=== PATIENT | female | born 1955 | race Caucasian/White ===

== ENCOUNTER 2019-08-24 17:05 | Inpatient (IN) | payer MEDICARE, BC ==
[~2019-08-24] VITALS: Ht 165.1 cm; Wt 65.8 kg
--- NOTE | 2019-08-24 17:45 | NUR ---
GPS/RN RECEIVED PT FROM [facility] DIRECT ADMIT ON 5150 FOR DTS, OVERDOSED AT HOME. WANTED TO . AMBULATORY, SELFCARE NO ACUTE DISTRESS ON FACE TO FACE ASSESSMENT PT DENIED SI, HI A/V H. NEGATIVE FOR COVID. DR MORGAN CALLED FOR THE ORDERS , ORDERS RECEIVED AND CARRIED OUT. WILL ENDORSE TO RAPHAEL BAIRD TO CONTINUE WITH ADMISSISON.
[2019-08-24] MEDS ORDERED: TOPI50TA24 MT (18:13)
[2019-08-24] MEDS ORDERED: LEVO75TA7 MT (18:13)
[2019-08-24] MEDS ORDERED: ALPR1TAB7 MT (18:13)
[2019-08-24] MEDS ORDERED: ASPI-605 PO (18:13)
[2019-08-24] MEDS ORDERED: CHOL10002 PO (18:13)
[2019-08-24] MEDS ORDERED: HYDR-3980 MT (18:13)
[2019-08-24] MEDS ORDERED: PARO20TA7 MT (18:13)
[2019-08-24] MEDS ORDERED: ESTR0.5T MT (18:13)
[2019-08-24] MEDS ORDERED: ACETAMINOPHEN 325 MG TABLET PO PRN (18:30)
[2019-08-24] MEDS ORDERED: MAG HYDROX/AL HYDROX/SIMETH 30 ML UDC PO PRN (18:30)
[2019-08-24] MEDS ORDERED: BLOOD SUGAR DIAGNOSTIC 1 EACH STRIP IN ONE (18:30)
[2019-08-24] MEDS ORDERED: MAGNESIUM HYDROXIDE 30 ML UDC PO PRN (18:30)
[2019-08-24 18:31] VITALS: BP 150/80
[2019-08-24 18:55] VITALS: BP 139/77
[2019-08-24 20:00] VITALS: BP 139/77
[2019-08-24] MEDS ORDERED: HYDROCODONE/APAP 10/325MG 1 EA TABLET PO PRN (20:00)
--- NOTE | 2019-08-24 20:16 | NUR ---
ADMISSION NOTES: ADMITTED THIS 64Y/O FEMALE PATIENT ADMIT FROM [facility], ADMITTED TO GPS ON 5150 HOLD, PER HOLD DANGER TO SELF , PER HOLD SUICIDAL IDEATION AND OVERDOSE ,UPON FACE TO FACE ASSESSMENT PATIENT IS A&O X ,3 DEPRESSED, APPROACHABLE, CALM COOPERTIVE, DENIES SI /HI AT THIS TIME, PT. IS POOR HISTORIAN, POOR INSIGHT ,POOR JUDGEMENT , PT. REFUSED TO SIGNS ADMISSION CONSENT PAPERS , BOTH MD AWARE AND NOTIFIED OF THE ADMISSION, BELONGINGS CONTRABAND WERE DONE , NURSING ASSESSMENT DONE ,PT. RIGHTS DISCUSS BY ROLLER PRESSER OPERATOR , PROVIDE THE PT. WITH HANDBOOK, AND MEDICATIONS GUIDE, ENVIRONMENTAL SAFETY CHECK DONE, ENCOURAGED PT. VERBALIZED ANY FEELING CONCERN TO STAFF, ORIENT TO UNIT POLICY, NO ACUTE DISTRESS NOTED,VITAL SIGNS WNL ,DENIES ANY PAIN AT THIS TIME,WILL CONTINUE TO MONITOR FOR Q15 SAFETY AND BEHAVIOR.
[2019-08-25 07:27] LABS: CHOLESTEROL 281 mg/dL (<200); HDL CHOLESTEROL 57 mg/dL (40-60); LDL 195 mg/dL (0-99); TRIGLYCERIDES 118 mg/dL (30-150)
[2019-08-25 07:33] LABS: BILIRUBIN,TOTAL 0.5 mg/dL (0.2-1.0); CALCIUM, SERUM 9.4 mg/dL (8.5-10.1); CREATININE 0.6 mg/dL (0.6-1.3); POTASSIUM 3.2 mmol/L (3.5-5.1); TOTAL PROTEIN, SERUM 7.6 g/dL (6.4-8.2)
[2019-08-25 08:00] VITALS: BP 144/89
[2019-08-25] MEDS: LEVOTHYROXINE SODIUM 75 MCG TABLET PO SCH (08:21)
[2019-08-25] MEDS: ASPIRIN EC 81 MG TABLET.DR PO SCH (08:40)
[2019-08-25] MEDS: CHOLECALCIFEROL 1,000 UNIT TABLET (VIT D3) PO SCH (08:40)
[2019-08-25] MEDS: ESTRADIOL 1 MG TABLET PO SCH (08:40)
[2019-08-25] MEDS ORDERED: ONDANSETRON 4 MG TAB.RAPDIS PO PRN (10:30)
[2019-08-25] MEDS: POTASSIUM CHLORIDE 20 MEQ TAB.PRT.SR PO SCH ×2 (11:33→12:51)
[2019-08-25] MEDS: FEXOFENADINE HCL (60 MG) 60 MG TABLET PO SCH (11:33)
[2019-08-25] MEDS: TOPIRAMATE 100 MG TABLET PO SCH (15:15)
[2019-08-25 16:00] VITALS: BP 137/79
--- NOTE | 2019-08-25 16:17 | NUR ---
Individual Counseling: This SW met with the patient at bedside to provide counseling regarding support systems. The patient cooperative throughout discussion. Patient is tangential and hyperverbal. Patient discussed relationship with her parents who years ago and bereavement. Pt. discussed relationship with her and son. Patient will be invited to participate in the next therapeutic milieu.
[2019-08-25 20:04] VITALS: BP 122/74
[2019-08-25] MEDS: PAROXETINE HCL 20 MG TABLET PO SCH (21:27)
[2019-08-25] MEDS ORDERED: diphenhydrAMINE HCL 25 MG CAPSULE PO PRN (22:00)
--- NOTE | 2019-08-26 00:14 | NUR ---
GPS RN NOTES: UPON DOING ROUNDS, PT AWAKE. ENCOURAGE PT TO EXPRESS THOUGHTS AND FEELINGS TO STAFF. PT STATED, "IM TRYING TO SLEEP ON MY OWN. " OFFERED RESTORIL PRN ORDERED. PT REFUSED. EXPLAIN RISKS AND BENEFITS. PT STILL REFUSED X3. CONTINUE TO MONITOR.
[2019-08-26 07:45] LABS: CALCIUM, SERUM 9.8 mg/dL (8.5-10.1); CREATININE 0.8 mg/dL (0.6-1.3); POTASSIUM 3.6 mmol/L (3.5-5.1)
[2019-08-26 08:00] VITALS: BP 132/83
[2019-08-26] MEDS: LEVOTHYROXINE SODIUM 75 MCG TABLET PO SCH (08:08)
[2019-08-26] MEDS: ESTRADIOL 1 MG TABLET PO SCH (08:22)
[2019-08-26] MEDS: CHOLECALCIFEROL 1,000 UNIT TABLET (VIT D3) PO SCH (08:22)
[2019-08-26] MEDS: TOPIRAMATE 100 MG TABLET PO SCH (08:22)
[2019-08-26] MEDS: FEXOFENADINE HCL (60 MG) 60 MG TABLET PO SCH (08:22)
[2019-08-26] MEDS: ASPIRIN EC 81 MG TABLET.DR PO SCH (08:22)
--- NOTE | 2019-08-26 12:10 | NUR ---
SUBSTANCE ABUSE INTERVENTION: SW provided substance abuse intervention to pt and discussed alternative ways of coping and dealing with stress.
--- NOTE | 2019-08-26 13:05 | NUR ---
INITIAL DISCHARGE PLAN: Pt wishes to return home [address] [place] [address]. Pts Naren [phone] will transport pt home. SW will help form a safe and proper discharge in collaboration with .
--- NOTE | 2019-08-26 13:34 | NUR ---
FAMILY CONTACT: SW contacted pts Naren ([phone]) and left a voicemail for callback.
--- NOTE | 2019-08-26 14:51 | NUR ---
INDIVIDUAL INTERVENTION: SW met with pt to assess for suicidality. Pt is minimizing suicidal attempt and denies taking Xanax in an attempt to overdose. Pts mood was euthymic and pts thought process was tangential with hyperverbal speech. Pt stated that she wanted to go home already and felt fine.
[2019-08-26 16:00] VITALS: BP 129/79
[2019-08-26 19:59] VITALS: BP 139/87
[2019-08-26] MEDS: PAROXETINE HCL 20 MG TABLET PO SCH (21:17)
[2019-08-27 08:00] VITALS: BP 123/65
[2019-08-27] MEDS: ESTRADIOL 1 MG TABLET PO SCH (08:59)
[2019-08-27] MEDS: CHOLECALCIFEROL 1,000 UNIT TABLET (VIT D3) PO SCH (08:59)
[2019-08-27] MEDS: ASPIRIN EC 81 MG TABLET.DR PO SCH (08:59)
[2019-08-27] MEDS: LEVOTHYROXINE SODIUM 75 MCG TABLET PO SCH (08:59)
[2019-08-27] MEDS: TOPIRAMATE 100 MG TABLET PO SCH (08:59)
[2019-08-27] MEDS: FEXOFENADINE HCL (60 MG) 60 MG TABLET PO SCH (09:00)
--- NOTE | 2019-08-27 14:57 | NUR ---
INDIVIDUAL INTERVENTION: SW met with pt to assess for suicidality. Pt denies suicidal ideation stating that she is ready to be discharged home then began talking about her drawing. SW attempted to redirect pt, however, pt is tangential and hyperverbal and difficult to redirect.
[2019-08-27 16:00] VITALS: BP 123/67
--- NOTE | 2019-08-27 18:00 | NUR ---
COOPERATIVE,COMPLIANT,NO BEHAVIOR ISSUES.
[2019-08-27 19:53] VITALS: BP_SYST 127; BP_SYST 133; BP_DIAS 72; BP_DIAS 73
[2019-08-27] MEDS: PAROXETINE HCL 20 MG TABLET PO SCH (21:29)
[2019-08-27] MEDS: TEMAZEPAM 7.5 MG CAPSULE PO PRN (22:15)
--- NOTE | 2019-08-27 22:15 | NUR ---
GPS RN NOTE: INSOMNIA PATIENT C/O OF INABILITY TO SLEEP. ADMINISTERED RESTORIL 7.5MG PRN ORDERED. WILL CONTINUE TO MONITOR.
[2019-08-28] MEDS: LEVOTHYROXINE SODIUM 75 MCG TABLET PO SCH (07:51)
[2019-08-28 08:00] VITALS: BP 117/72
[2019-08-28 08:04] VITALS: BP 117/72
[2019-08-28] MEDS: TOPIRAMATE 100 MG TABLET PO SCH (08:39)
[2019-08-28] MEDS: ESTRADIOL 1 MG TABLET PO SCH (08:39)
[2019-08-28] MEDS: ASPIRIN EC 81 MG TABLET.DR PO SCH (08:39)
[2019-08-28] MEDS: FEXOFENADINE HCL (60 MG) 60 MG TABLET PO SCH (08:39)
[2019-08-28] MEDS: CHOLECALCIFEROL 1,000 UNIT TABLET (VIT D3) PO SCH (08:39)
--- NOTE | 2019-08-28 09:17 | NUR ---
GPS RN Note: Received patient AOX2-3, awake in bed. Patient is cooperative with treatment plan and medication administration. Reports she is getting comfortable and used to the milieu. Patient denies SI/HI/VAH. Patient is ambulatory with steady gait. Safety precautions in place. Bed alarm on. Patient ate full meal for breakfast. Calm, cooperative, friendly. Spoke to son on phone this morning.
--- NOTE | 2019-08-28 14:56 | NUR ---
INDIVIDUAL INTERVENTION: SW attempted to meet with pt, but pt was asleep and not easily aroused by verbal cues.
[2019-08-28 16:00] VITALS: BP 118/69
[2019-08-28 20:06] VITALS: BP 129/73
[2019-08-28] MEDS: PAROXETINE HCL 20 MG TABLET PO SCH (21:20)
[2019-08-29] MEDS: TEMAZEPAM 7.5 MG CAPSULE PO PRN ×2 (00:01→22:14)
[2019-08-29 08:00] VITALS: BP_SYST 123; BP_SYST 136; BP_DIAS 81; BP_DIAS 83
[2019-08-29] MEDS: LEVOTHYROXINE SODIUM 75 MCG TABLET PO SCH (08:18)
[2019-08-29] MEDS: TOPIRAMATE 100 MG TABLET PO SCH (08:18)
[2019-08-29] MEDS: ESTRADIOL 1 MG TABLET PO SCH (08:18)
[2019-08-29] MEDS: ASPIRIN EC 81 MG TABLET.DR PO SCH (08:19)
[2019-08-29] MEDS: CHOLECALCIFEROL 1,000 UNIT TABLET (VIT D3) PO SCH (08:19)
[2019-08-29] MEDS: FEXOFENADINE HCL (60 MG) 60 MG TABLET PO SCH (08:20)
--- NOTE | 2019-08-29 13:36 | NUR ---
FAMILY CONTACT: SW contacted pts Naren ([phone]) and left a voicemail for callback.
--- NOTE | 2019-08-29 13:41 | NUR ---
INDIVIDUAL INTERVENTION: SW met with pt individually to assess for suicidality. Upon approach pt is focused on getting information about her patient portal. SW stated that pts do not have access to computers in the unit and pt became agitated and irritable and began demanding that SW get her a computer so she can check her records. SW provided intervention for self-regulation of mood and pt did not engage stating that she was speaking normally then stating that she was angry because she saw the news. Pt then went on the state that SW needed to call her and then began clenching her jaw with an angry affect. SW deemed pt inappropriate to continue individual intervention and called MD to inform him of pts behavior and symptoms of irritability and unstable mood.
--- NOTE | 2019-08-29 14:04 | NUR ---
FAMILY CONTACT: SW received a call from pts Naren ([phone]) who expressed concerns with pts behavior. He stated that pt has been calling him and has been severely agitated and has been having mood swings. He states pt has been this way for many years and he believes pt is bipolar and wishes for MD to re-evaluate pts diagnosis. FABIANA informed him of SW interaction with pt on this present day and informed him SW has contacted MD to inform him of pts mood.
[2019-08-29 16:00] VITALS: BP 136/83
[2019-08-29 19:56] VITALS: BP 132/79
[2019-08-29] MEDS: PAROXETINE HCL 20 MG TABLET PO SCH (21:14)
--- NOTE | 2019-08-29 21:57 | NUR ---
NURSES NOTES: PATIENT APPROACHED THE PROGRESSIVE CARE MANAGER AND THE CHARGE NURSE SAYING "REBECA AND ERNIE, MAY I HAVE A MOMENT WITH YOU?" SO TARIFF PUBLISHING AGENT AND RN ASSIGNED GATHERED WHERE THE PATIENT WAS STANDING. " I WANT TO SPEAK WITH MY SECURITY GUARD SUPERVISOR" WHEN BOTH NURSES WERE LOOKING AT HER, PATIENT SUDDENLY SAID, "LOOK AT THIS!" "WHAT DO YOU SEE?", PATIENT AT THIS TIME WAS HOLDING UP HER GOWN EXPOSING HER BODY. SHE THEN POINTED TO THE SCARS FROM HER PAST SURGERIES. "SO WHERE'S THE TINNITUS IN THE RECORD? SO THERE'S NO MEDICAL RECORDS? " THE PLACE WHERE I CAME FROM, THEY ARE LYING. 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 MOMENTS LATER, PATIENT APPROACHED THE PROGRESSIVE CARE MANAGER STATING "I HOPE I DIDN'T MEAN TO UPSET YOU." NURSE THEN TOLD HER EVERYTHING IS ALL GOOD. THEN SHE WENT BACK TO HER ROOM.
[2019-08-30 08:00] VITALS: BP 144/70
[2019-08-30] MEDS: LEVOTHYROXINE SODIUM 75 MCG TABLET PO SCH (08:11)
[2019-08-30] MEDS: ASPIRIN EC 81 MG TABLET.DR PO SCH (08:11)
[2019-08-30] MEDS: TOPIRAMATE 100 MG TABLET PO SCH (08:11)
[2019-08-30] MEDS: CHOLECALCIFEROL 1,000 UNIT TABLET (VIT D3) PO SCH (08:11)
[2019-08-30] MEDS: FEXOFENADINE HCL (60 MG) 60 MG TABLET PO SCH (08:12)
[2019-08-30] MEDS: ESTRADIOL 1 MG TABLET PO SCH (08:12)
[2019-08-30 16:00] VITALS: BP 137/79
[2019-08-30] MEDS: PAROXETINE HCL 20 MG TABLET PO SCH (21:41)
[2019-08-31 04:19] VITALS: BP 136/79
[2019-08-31 08:00] VITALS: BP 132/74
[2019-08-31] MEDS: LEVOTHYROXINE SODIUM 75 MCG TABLET PO SCH (08:26)
[2019-08-31] MEDS: CHOLECALCIFEROL 1,000 UNIT TABLET (VIT D3) PO SCH (08:39)
[2019-08-31] MEDS: ASPIRIN EC 81 MG TABLET.DR PO SCH (08:39)
[2019-08-31] MEDS: ESTRADIOL 1 MG TABLET PO SCH (08:40)
[2019-08-31] MEDS: TOPIRAMATE 100 MG TABLET PO SCH (08:40)
[2019-08-31] MEDS: FEXOFENADINE HCL (60 MG) 60 MG TABLET PO SCH (08:44)
[2019-08-31 16:00] VITALS: BP 136/74
[2019-08-31 20:02] VITALS: BP 134/87
[2019-08-31 20:03] VITALS: BP 134/87
[2019-08-31] MEDS: PAROXETINE HCL 20 MG TABLET PO SCH (21:38)
[2019-08-31] MEDS: TEMAZEPAM 7.5 MG CAPSULE PO PRN (22:12)
[2019-09-01 08:00] VITALS: BP 143/83
[2019-09-01] MEDS: FEXOFENADINE HCL (60 MG) 60 MG TABLET PO SCH (08:01)
[2019-09-01] MEDS: TOPIRAMATE 100 MG TABLET PO SCH (08:01)
[2019-09-01] MEDS: CHOLECALCIFEROL 1,000 UNIT TABLET (VIT D3) PO SCH (08:01)
[2019-09-01] MEDS: ASPIRIN EC 81 MG TABLET.DR PO SCH (08:01)
[2019-09-01] MEDS: LEVOTHYROXINE SODIUM 75 MCG TABLET PO SCH (08:01)
[2019-09-01] MEDS: ESTRADIOL 1 MG TABLET PO SCH (08:01)
--- NOTE | 2019-09-01 10:15 | NUR ---
FAMILY CONTACT: FABIANA contacted pts Naren ([phone])to inform him pt will be discharged on Sunday09/03/19. agrees with discharge plan and states he will pickers material handlers pt at 1100am.
--- NOTE | 2019-09-01 13:58 | NUR ---
INDIVIDUAL INTERVENTION: FABIANA met with pt at beside and encouraged her to attend group on this present day. Pt refused and appeared manic, hyperverbal, and agitated and stated she needed an advocate to get her out of the hospital and slammed her hand on the bed. SW explained that she will be discharged on Sunday09/03/19 and informed her SW informed her about her discharge. Pt became happy and stated, "Oh thank God I can't wait to be home." Pt then got up from her bed and went the bathroom. Pt no longer engaged with SW.
[2019-09-01 16:00] VITALS: BP 109/58
--- NOTE | 2019-09-01 18:29 | NUR ---
rn notes patient remains a/o x3, cooperative, shows minimal agitation, calms down quickly. compliant on medications. Able to mingle with other patients calmly.
[2019-09-01 19:54] VITALS: BP 130/72
[2019-09-01] MEDS: PAROXETINE HCL 20 MG TABLET PO SCH (21:07)
[2019-09-01] MEDS: TEMAZEPAM 7.5 MG CAPSULE PO PRN (21:44)
--- NOTE | 2019-09-01 21:44 | NUR ---
GPS RN NOTE: INSOMNIA PATIENT C/O OF INABILITY TO SLEEP. ADMINISTERED RESTORIL 7.5MG PRN ORDERED. WILL CONTINUE TO MONITOR.
--- NOTE | 2019-09-02 06:01 | NUR ---
GPS-RN NOTE: RIGHT LOWER LEG BRUISE PATIENT NOTED TO HAVE RIGHT LOWER LEG BRUISE. IN PURPLISH DISCOLORATION. PICTURE PLACED IN CHART. NO SKIN BREAKDOWN NOTED. DENIES PAIN OR DISCOMFORT. WHEN ASKED PATIENT WHAT HAPPENED? PT. STATED "I DON'T KNOW". GOOD SKIN CARE RENDERED. WILL CONTINUE TO MONITOR FOR ANY CHANGES EVERY SHIFT AND PRN. WILL ENDORSE TO THE DAY SHIFT NURSE FOR CONTINUITY OF CARE.
[2019-09-02 08:01] VITALS: BP 132/80
[2019-09-02] MEDS: TOPIRAMATE 100 MG TABLET PO SCH (08:24)
[2019-09-02] MEDS: LEVOTHYROXINE SODIUM 75 MCG TABLET PO SCH (08:24)
[2019-09-02] MEDS: ESTRADIOL 1 MG TABLET PO SCH (08:24)
[2019-09-02] MEDS: ASPIRIN EC 81 MG TABLET.DR PO SCH (08:24)
[2019-09-02] MEDS: CHOLECALCIFEROL 1,000 UNIT TABLET (VIT D3) PO SCH (08:24)
[2019-09-02] MEDS: FEXOFENADINE HCL (60 MG) 60 MG TABLET PO SCH (08:26)
[2019-09-02] MEDS ORDERED: NA PHOS,M-B/NA PHOS,DI-BA 1 EA ENEMA RC PRN (09:00)
[2019-09-02] MEDS: DOCUSATE SODIUM 100 MG CAPSULE PO SCH (09:10)
[2019-09-02] MEDS: LORAZEPAM 0.5 MG TABLET PO PRN ×2 (10:17→17:59)
--- NOTE | 2019-09-02 10:17 | NUR ---
VERY AGITATED GIVEN ATIVAN 0.5 MG PO.CALL OUT TO DR. SON.RN INFORMED THAT PT. ACTING THIS WAY SINCE YESTERDAY,SUSPICIOUS,PARANOID AND DELUSIONAL,PSYCHOTIC.ORDERS GIVEN.
[2019-09-02] MEDS: risperiDONE 1 MG TABLET PO SCH ×3 (13:12→20:00)
--- NOTE | 2019-09-02 13:41 | NUR ---
REFUSED RISPERDAL AT THIS TIME.WILL ATTEMPT LATER.
--- NOTE | 2019-09-02 14:07 | NUR ---
GROUP NOTE: Pt was asleep and not easily roused by verbal cues.
--- NOTE | 2019-09-02 15:22 | NUR ---
REFUSED RISPERDAL WITH 2 ATTEMPTS FROM RN AT 1334 AND 1434.CALL OUT TO DR. SON AND HE IS AWARE SHE REFUSED.STATES SHE WILL GO HOME TOMORROW.
[2019-09-02 15:56] VITALS: BP 130/76
--- NOTE | 2019-09-02 18:01 | NUR ---
at desk,attempting to collapse intentionally,sat on floor.then crying out.delusional.given ativan 0.5 mg po.
[2019-09-02 20:08] VITALS: BP 124/66
--- NOTE | 2019-09-02 20:14 | NUR ---
GPS RN NOTES: REFUSED RISPERDAL PT REFUSED RISPERDAL 0.5MG PO DUE ORDERED. PT STATED, "IM NOT TAKING THAT." EXPLAIN RISKS AND BENEFITS. PT STILL REFUSED X3. CONTINUE TO MONITOR.
--- NOTE | 2019-09-02 21:24 | NUR ---
GPS RN NOTES: PT STATED SHE JUST REMEMBERED SHE IS ALLERGIC TO MORPHINE AND PENICILLINS. INPUT ALLERGY TO CHART AND D/C NARCO PRN ORDERED DUE TO ALLERGY OF MORPHINE. ALLERGY BAND ON. CONTINUE TO MONITOR.
[2019-09-02] MEDS: PAROXETINE HCL 20 MG TABLET PO SCH (21:40)
[2019-09-03] MEDS: LEVOTHYROXINE SODIUM 75 MCG TABLET PO SCH (07:57)
[2019-09-03 08:00] VITALS: BP_SYST 125; BP_SYST 135; BP_DIAS 74; BP_DIAS 75
[2019-09-03] MEDS: ESTRADIOL 1 MG TABLET PO SCH (08:00)
[2019-09-03] MEDS: DOCUSATE SODIUM 100 MG CAPSULE PO SCH (08:00)
[2019-09-03] MEDS: FEXOFENADINE HCL (60 MG) 60 MG TABLET PO SCH (08:00)
[2019-09-03] MEDS: TOPIRAMATE 100 MG TABLET PO SCH (08:00)
[2019-09-03] MEDS: CHOLECALCIFEROL 1,000 UNIT TABLET (VIT D3) PO SCH (08:00)
[2019-09-03] MEDS: ASPIRIN EC 81 MG TABLET.DR PO SCH (08:00)
[2019-09-03] MEDS: risperiDONE 1 MG TABLET PO SCH (08:10)
--- NOTE | 2019-09-03 09:03 | NUR ---
DISCHARGE NOTE: Pt will be discharged at 11:00am via private vehicle home [address] [place] [address]. Pts Naren [phone] will cone picker pt and transport home. Pts mood is anxious with congruent affect. Pt denies visual/auditory hallucinations and denies suicidal/homicidal ideation. Pt will follow up with and address her prescription abuse with [facility] Address: [address], [place] [address] and [facility] Address: [address], [place] [address] . The multidisciplinary exit care form was done, printed, signed, and given to the patient.
--- NOTE | 2019-09-03 10:30 | NUR ---
NURSING NOTE: PRESCRIPTIONS WERE CALLED TO [facility] LOCATED AT [address] [place], [address] PER PT REQUEST AT [phone].
--- NOTE | 2019-09-03 11:00 | NUR ---
NURSING DISCHARGE NOTE: PATIENT DISCHARGED TODAY AT 1050 HOME WITH HER LOCATED AT [address] [place] [address], [id number]. PATIENT LEFT THE UNIT AMBULATORY ACCOMPANIED BY 1 STAFF AND 1 RN TO THE MAIN LOBBY AND PICKED UP BY HER ANGE VIA PRIVATE VEHICLE. PATIENT IS IN STABLE CONDITION. VSS. NO ACUTE DISTRESS NOTED. NO COMPLAINTS. COMPLIANT WITH MEDICATION MANAGEMENT. COOPERATIVE WITH PLAN OF CARE. PSYCHIATRIC TREATMENT PLANS MET. MEDICAL TREATMENT PLANS DEFERRED FOR CONTINUAL MONITORING. DENIES SI/HI/VAH AT THE TIME OF DISCHARGE. PT REFUSED SKIN ASSESSMENT AND PICTURES TO BE TAKEN. EDUCATED PATIENT ABOUT AFTERCARE WITH COPY PROVIDED. RETURNED PERSONAL BELONGINGS TO PATIENT. MEDICATIONS RECONCILED WITH ALONG WITH PSYCHIATRIC DISCHARGE ORDERS. DISCHARGE PAPERWORK SIGNED. FOR FOLLOW UP WITH PSYCHIATRIST AND SCREW CUTTER WITHIN 1 WEEK.
== END 2019-09-03 10:50 | disposition home or self-care (01) | DRG 885 ==
LOC: GPS 17:05
PROVIDERS: ADMIT Psychiatry & Neurology Psychiatry; ATTEND Nurse Practitioner Acute Care
DX: F33.2 Major depressive disorder, recurrent severe without psychotic features (principal); E87.0 Hyperosmolality and hypernatremia; F41.9 Anxiety disorder, unspecified; E03.9 Hypothyroidism, unspecified; K58.9 Irritable bowel syndrome, unspecified; R42 Dizziness and giddiness; K59.00 Constipation, unspecified; E86.0 Dehydration; F12.90 Cannabis use, unspecified, uncomplicated; Z91.5 Personal history of self-harm
CPT/HCPCS: 36415; 80048-TC; 80053-TC; 80061-TC; 84439-TC; 84443-TC; 87081-TC; Q0162